=== PATIENT | female | born 1965 | race Caucasian/White ===

== ENCOUNTER 2017-08-08 10:05 | Inpatient (IN) | payer BC, OTHER ==
[~2017-08-08] VITALS: Ht 162.6 cm; Wt 87.0 kg
[2017-08-08] VITALS (11 sets, daily range): BP systolic 104–141; BP diastolic 59–93; PULSE 83–94; TEMP 36.5–37.3; O2SAT 96–100; Ht 162.6 cm; Wt 87.0 kg
[~2017-08-08 10:05] MED LIST: OMEP40CA41 PO
[2017-08-08] MEDS ORDERED: SODIUM CHLORIDE 0.9% 1000ML 1,000 ML IV STA (10:30)
[2017-08-08 11:12] LABS: PTT PATIENT 22.4 SECONDS (21.0-31.0)
[2017-08-08 11:18] LABS: HEMATOCRIT 23.8 % (37-47); HEMOGLOBIN 6.4 g/dL (12.0-16.0); MEAN CELL VOLUME 61.3 fL (80-100); MEAN CORPUSCULAR HEMOGLOBIN 16.5 pg (25-34); MEAN CORPUSCULAR HGB CONC 26.9 g/dl (32-36); MEAN PLATELET VOLUME 9.4 fL (7.4-10.4); PLATELET COUNT 576 K/uL (130-400); RED CELL DISTRIBUTION WIDTH CV 17.3 % (11.5-14.5); RED CELL DISTRIBUTION WIDTH SD 38.7 fL (36.4-46.3); WHITE BLOOD COUNT 6.06 K/uL (4.8-10.8)
[2017-08-08 11:24] LABS: ALT/SGPT 18 U/L (12-78); AST/SGOT 13 U/L (15-37); BLOOD UREA NITROGEN 22 mg/dl (7-18); CALCIUM 8.9 mg/dl (8.5-10.1); CARBON DIOXIDE 25 mmol/L (21-32); CREATININE 0.71 mg/dl (0.60-1.20); GLUCOSE 97 mg/dl (70-99); LIPASE 256 U/L (73-393); POTASSIUM 3.6 mmol/L (3.5-5.1); SODIUM 139 mmol/L (136-145)
[2017-08-08 11:27] LABS: ALKALINE PHOSPHATASE 113 U/L (45-117); TOTAL PROTEIN 7.4 gm/dl (6.4-8.2)
[2017-08-08 11:43] LABS: BASO % 0.5 %; BASO ABS # 0.03 K/uL (0-0.2); EOS % 2.1 %; EOS ABS # 0.13 K/uL (0-0.5); IG# 0.02 K/uL (0.00-0.02); LYMPH % 32.2 %; LYMPH ABS # 1.95 K/uL (1.2-3.4); MONO % 7.4 %; MONO ABS # 0.45 K/uL (0.11-0.59); NEUT % 57.5 %; NEUT ABS # 3.48 K/uL (1.4-6.5)
[2017-08-08] MEDS ORDERED: ONDANSETRON INJ 2 MG/ML 2 ML VIAL IV PRN ×2 (12:30→16:45)
[2017-08-08] MEDS ORDERED: MAGNESIUM HYDROXIDE SUSP 30 ML UDC PO PRN (12:30)
[2017-08-08] MEDS ORDERED: ZOLPIDEM TARTRATE 5 MG TAB PO PRN ×2 (12:30)
[2017-08-08] MEDS ORDERED: POLYETHYLENE (MIRALAX) 17 GM PACK PO PRN (12:30)
[2017-08-08] MEDS ORDERED: ALUMINUM/MAGNESIUM/SIMETH (MAALOX MAX) 30 ML UDC PO PRN (12:30)
[2017-08-08 13:09] LABS: RETIC COUNT % 1.5 % (0.5-2.0)
[2017-08-08] MEDS ORDERED: FAMOTIDINE IV INJ 20 MG in DEXTROSE 5% 100ML 100 ML IV STA (13:10)
[2017-08-08] MEDS ORDERED: PANTOprazole INJ 80 MG in DEXTROSE 5% 100ML IV ONE (13:30)
[2017-08-08] MEDS ORDERED: PANTOprazole INJ 40 MG in DEXTROSE 5% 100ML IV SCH (13:45)
--- NOTE | 2017-08-08 13:45 | History and Physical ---
History & Physical Date & Time of Service: Aug 08, 2017 at 13:39 Chief Complaint: Low Hemoglobin Primary Care Physician: Candida Cardenas D.O. History of Present Illness Source: patient, family, hospital records 52 years old female with no significant past medical history except severe arthritis. She was having severe hip pain and was using lots of nonsteroidal anti-inflammatory drugs. She said around May she was using 2-3 times a day ibuprofen. Currently she uses it only once a day or once every 2 days. She is being evaluated for a hip replacement surgery. Has been feeling very tired and fatigued lately and looks pale. Denies any blood in the stool or melena. She went for her presurgical evaluation. Obtain blood test that showed hemoglobin around 6. She was called by the physician and asked to come to the ED for further evaluation.. Denies any abdominal pain in the ED she was examined by ED physician, her occult blood in stool was positive. She denies smoking or alcohol abuse No significant past medical history Family history for breast cancer in her mom when she was in her 70s other than that no cardiac history. Past Medical/Surgical History Medical Problems: (1) GI bleed (2) No chronic diseases present (3) Right hip pain Family History FH: gallbladder disease Heart disease Hypertension Kidney disease Social History Smoking Status: Never Smoker Marital Status: Housing status: lives with family Occupational Status: employed Immunizations History of Influenza Vaccine: Unknown History of Tetanus Vaccine?: Unknown History of Pneumococcal: Unknown History of Hepatitis B Vaccine: Unknown Allergies Coded Allergies: Codeine (Verified Adverse Reaction, Unknown, N-V, 08/08/17) Home Medications Scheduled Omeprazole (Prilosec), 40 MG PO DAILY Review of Systems Review of system Constitutional: No fever / no chills / no sweats / no weakness /positive for fatigue Eyes: no blurring of vision / no eye pain / no discharge / no redness ENT: no hearing loss / no epistaxis /no swallowing problems Respiratory: no cough / no wheezing / no SOB / no hemoptysis Cardiovascular: no Chest pain / no lower extremity edema / no palpitation Abdomen: no pain / no nausea / no vomiting / no constipation Musculoskeletal: no joint pain / no muscle pain / no joint swelling Genitourinary: no dysuria / no incontinence / no urinary retention Neurologic: no focal weakness / no numbness/tingling / no ataxia Psychiatric: no depression symptoms / no anxiety / no insomnia Endocrine: no excessive thirst / no excessive urination Hematologic: no abnormal bleeding / no bruising / no LN swelling Skin: No rash / no pallor Physical Exam Vital Signs Date Time Temp Pulse Resp B/P (MAP) Pulse Ox O2 Delivery O2 Flow Rate FiO2 08/08/17 13:10 37.0 85 20 104/87 99 08/08/17 12:52 37.2 84 20 121/75 98 08/08/17 11:05 96 08/08/17 11:03 90 16 92/51 96 Room Air 08/08/17 10:18 36.9 105 18 134/79 95 Room Air Physical examination General patient appears to be comfortable, not in acute distress very pale, HEENT: Atraumatic , normocephalic /no jaundice /no pallor /anicteric /no dry mucous membrane /normal external ear inspection Neck: Supple /no swelling /central trach Heart: S1/S2 normal/regular rate and rhythm/no gallop /no rub /no murmur Lungs: Clear to auscultation bilaterally/normal chest with expansion/no rhonchi/ no rales/no wheezing/no use of accessory muscles of respiration Abdomen: Soft/nontender/no guarding/no rebound/no organomegaly/no pulsatile mass Musculoskeletal: No swelling/no edema/no tenderness/normal range of motion Neuro exam: Awake alert oriented 3/cranial nerves II through XII appear to be intact/sensation intact/moves all extremities/no abnormal movements Psychiatric evaluation: No depressed mood/normal affect Skin: No rash on exposed skin area/no erythema Extremity: Normal pulse/no pitting edema/no clubbing or cyanosis Endocrine/lymphatic: No obvious lymphadenopathy /no lymphedema Diagnostics Laboratory Results Results Past 24 Hours Test 08/08/17 10:52 08/08/17 12:53 Range/Units White Blood Count 6.06 4.8-10.8 K/uL Red Blood Count 3.88 4.2-5.4 M/uL Hemoglobin 6.4 12.0-16.0 g/dL Hematocrit 23.8 37-47 % Mean Corpuscular Volume 61.3 80-100 fL Mean Corpuscular Hemoglobin 16.5 25-34 pg Mean Corpuscular Hemoglobin Concent 26.9 32-36 g/dl Platelet Count 576 130-400 K/uL Mean Platelet Volume 9.4 7.4-10.4 fL Neutrophils (%) (Auto) 57.5 % Lymphocytes (%) (Auto) 32.2 % Monocytes (%) (Auto) 7.4 % Eosinophils (%) (Auto) 2.1 % Basophils (%) (Auto) 0.5 % Neutrophils # (Auto) 3.48 1.4-6.5 K/uL Lymphocytes # (Auto) 1.95 1.2-3.4 K/uL Monocytes # (Auto) 0.45 0.11-0.59 K/uL Eosinophils # (Auto) 0.13 0-0.5 K/uL Basophils # (Auto) 0.03 0-0.2 K/uL RDW Standard Deviation 38.7 36.4-46.3 fL RDW Coefficient of Variation 17.3 11.5-14.5 % Immature Granulocyte % (Auto) 0.3 % Immature Granulocyte # (Auto) 0.02 0.00-0.02 K/uL Hypochromasia PRESENT Poikilocytosis PRESENT Anisocytosis PRESENT Microcytosis PRESENT Absolute Reticulocyte Count 0.06 0.02-0.10 10^6/uL Percent Reticulocyte Count 1.5 0.5-2.0 % Prothrombin Time 10.2 9.0-12.0 SECONDS Prothromb Time International Ratio 1.0 0.9-1.1 Activated Partial Thromboplast Time 22.4 21.0-31.0 SECONDS Partial Thromboplastin Ratio 0.9 Sodium Level 139 136-145 mmol/L Potassium Level 3.6 3.5-5.1 mmol/L Chloride Level 107 98-107 mmol/L Carbon Dioxide Level 25 21-32 mmol/L Anion Gap 7.0 3-11 mmol/L Blood Urea Nitrogen 22 7-18 mg/dl Creatinine 0.71 0.60-1.20 mg/dl Est Creatinine Clear Calc Drug Dose 96.7 ml/min Estimated GFR () 111.9 Estimated GFR (Non- 96.6 BUN/Creatinine Ratio 30.9 10-20 Random Glucose 97 70-99 mg/dl Calcium Level 8.9 8.5-10.1 mg/dl Iron Level 8 35-150 mcg/dl Total Iron Binding Capacity 562 250-450 mcg/dl Transferrin 386 200-360 mg/dl Transferrin % Saturation 1 15-50 % Ferritin 1.7 8.0-388.0 ng/ml Total Bilirubin 0.2 0.2-1 mg/dl Direct Bilirubin < 0.1 0-0.2 mg/dl Aspartate Amino Transf (AST/SGOT) 13 15-37 U/L Alanine Aminotransferase (ALT/SGPT) 18 12-78 U/L Alkaline Phosphatase 113 45-117 U/L Total Protein 7.4 6.4-8.2 gm/dl Albumin 4.0 3.4-5.0 gm/dl Lipase 256 73-393 U/L Vitamin B12 Level 281 211-911 pg/mL Folate 18.43 >5.38 ng/mL Impression Assessment and Plan 52 years old female with no significant past medical history except severe arthritis. On chronic use of nonsteroidal anti-inflammatory drugs presented to the hospital with severe anemia. 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 until seen by GI Transfuse packed RBCs x 3 units Although likely her blood loss is secondary to nonsteroidal anti-inflammatory, will order full anemia study to rule out any concomitant chronic types of B12 or folate deficiency Check INR/platelet count SCD boot for DVT prophylaxis, avoid pharmacologic DVT prophylaxis at this point Resuscitation Status VTE Prophylaxis Will order VTE Prophylaxis: Yes
--- NOTE | 2017-08-08 15:16 | EMERGENCY ROOM VISIT NOTE ---
History Report prepared by Ayleen: Canelo Vázquez Under the Supervision of: Dr. Devan Valentin D.O. First contact with patient: 10:21 Chief Complaint: REFERRED BY DOCTOR Stated Complaint: LOW HEMOGLOBIN History of Present Illness The patient is a 52 year old female who presents to the Emergency Room with complaints of a persistent low hemoglobin level that was detected prior to arrival today. She states that she was seen by her primary care physician yesterday because she has hip surgery scheduled in 2 weeks in [place]. The patient had lab work done there, and was called by her doctor this morning because her hemoglobin was low. She notes that she has had some shortness of breath with exertion recently, as well as some mild chest pain with exertion. Per the patient's , the patient has been more pale in appearance than normal over the past few days. The patient notes no history of hemoglobin problems. She denies any nausea, vomiting or vomiting up blood, lightheadedness , abdominal pain, coughing up blood, melena, hematochezia, or vaginal bleeding or discharge. She adds that she was taking Ibuprofen twice a day until May, and since then has been taking Ibuprofen 2 or 3 times per week. The patient says that she has not been started on any new medications recently, and has no other medical conditions. She notes no recent steroid use. 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 Denies lightheadedness, vaginal bleeding or discharge. Review of Systems See HPI for pertinent positives & negatives. A total of 10 systems reviewed and were otherwise negative. Past Medical & Surgical Medical Problems: (1) GI bleed (2) No chronic diseases present Family History FH: gallbladder disease Heart disease Hypertension Kidney disease Social History Smoking Status: Never Smoker Marital Status: Housing Status: lives with family Occupation Status: employed Current/Historical Medications Scheduled Omeprazole (Prilosec), 40 MG PO DAILY Allergies Coded Allergies: Codeine (Verified Adverse Reaction, Unknown, N-V, 08/08/17) Physical Exam Vital Signs Date Time Temp Pulse Resp B/P (MAP) Pulse Ox O2 Delivery O2 Flow Rate FiO2 08/08/17 11:05 96 08/08/17 11:03 90 16 92/51 96 Room Air 08/08/17 10:18 36.9 105 18 134/79 95 Room Air Physical Exam GENERAL: Sitting up in bed, pale appearing, no acute distress, nontoxic. EYE EXAM: normal conjunctiva. OROPHARYNX: no exudate, no erythema, lips, buccal mucosa, and tongue normal and mucous membranes are moist NECK: supple, no nuchal rigidity, no adenopathy, non-tender LUNGS: Clear to auscultation. Normal chest wall mechanics HEART: no murmurs, S1 normal and S2 normal ABDOMEN: abdomen soft, non-tender, normo-active bowel sounds, no masses, no rebound or guarding. RECTAL: Heme positive stool. BACK: Back is symmetrical on inspection and there is no deformity, no midline tenderness, no CVA tenderness. SKIN: no rashes and no bruising UPPER EXTREMITIES: upper extremities are grossly normal. LOWER EXTREMITIES: No pitting edema. NEURO EXAM: Normal sensorium, cranial nerves II-XII grossly intact, normal speech, no gross weakness of arms, no gross weakness of legs. Medical Decision & Procedures Laboratory Results 08/08/17 10:52 Red Blood Count 3.88, Mean Corpuscular Volume 61.3, Mean Corpuscular Hemoglobin 16.5, Mean Corpuscular Hemoglobin Concent 26.9, Mean Platelet Volume 9.4, Neutrophils (%) (Auto) 57.5, Lymphocytes (%) (Auto) 32.2, Monocytes (%) (Auto) 7.4, Eosinophils (%) (Auto) 2.1, Basophils (%) (Auto) 0.5, Neutrophils # (Auto) 3.48, Lymphocytes # (Auto) 1.95, Monocytes # (Auto) 0.45, Eosinophils # (Auto) 0.13, Basophils # (Auto) 0.03 08/08/17 10:52 Test 08/08/17 10:52 White Blood Count 6.06 K/uL (4.8-10.8) Red Blood Count 3.88 M/uL (4.2-5.4) Hemoglobin 6.4 g/dL (12.0-16.0) Hematocrit 23.8 % (37-47) Mean Corpuscular Volume 61.3 fL (80-100) Mean Corpuscular Hemoglobin 16.5 pg (25-34) Mean Corpuscular Hemoglobin Concent 26.9 g/dl (32-36) Platelet Count 576 K/uL (130-400) Mean Platelet Volume 9.4 fL (7.4-10.4) Neutrophils (%) (Auto) 57.5 % Lymphocytes (%) (Auto) 32.2 % Monocytes (%) (Auto) 7.4 % Eosinophils (%) (Auto) 2.1 % Basophils (%) (Auto) 0.5 % Neutrophils # (Auto) 3.48 K/uL (1.4-6.5) Lymphocytes # (Auto) 1.95 K/uL (1.2-3.4) Monocytes # (Auto) 0.45 K/uL (0.11-0.59) Eosinophils # (Auto) 0.13 K/uL (0-0.5) Basophils # (Auto) 0.03 K/uL (0-0.2) RDW Standard Deviation 38.7 fL (36.4-46.3) RDW Coefficient of Variation 17.3 % (11.5-14.5) Immature Granulocyte % (Auto) 0.3 % Immature Granulocyte # (Auto) 0.02 K/uL (0.00-0.02) Hypochromasia PRESENT Poikilocytosis PRESENT Anisocytosis PRESENT Microcytosis PRESENT Absolute Reticulocyte Count 0.06 10^6/uL (0.02-0.10) Percent Reticulocyte Count 1.5 % (0.5-2.0) Prothrombin Time 10.2 SECONDS (9.0-12.0) Prothromb Time International Ratio 1.0 (0.9-1.1) Activated Partial Thromboplast Time 22.4 SECONDS (21.0-31.0) Partial Thromboplastin Ratio 0.9 Anion Gap 7.0 mmol/L (3-11) Est Creatinine Clear Calc Drug Dose 96.7 ml/min Estimated GFR () 111.9 Estimated GFR (Non- 96.6 BUN/Creatinine Ratio 30.9 (10-20) Calcium Level 8.9 mg/dl (8.5-10.1) Iron Level 8 mcg/dl (35-150) Total Iron Binding Capacity 562 mcg/dl (250-450) Transferrin 386 mg/dl (200-360) Transferrin % Saturation 1 % (15-50) Ferritin 1.7 ng/ml (8.0-388.0) Total Bilirubin 0.2 mg/dl (0.2-1) Direct Bilirubin < 0.1 mg/dl (0-0.2) Aspartate Amino Transf (AST/SGOT) 13 U/L (15-37) Alanine Aminotransferase (ALT/SGPT) 18 U/L (12-78) Alkaline Phosphatase 113 U/L (45-117) Total Protein 7.4 gm/dl (6.4-8.2) Albumin 4.0 gm/dl (3.4-5.0) Lipase 256 U/L (73-393) Laboratory results per my review. Medications Administered Medications (Trade) Dose Ordered Sig/Mayte Route Start Time Stop Time Status Last Admin Dose Admin Sodium Chloride 1,000 ml @ 999 mls/hr Q1H1M STAT IV 08/08/17 10:30 08/08/17 11:30 DC 08/08/17 11:00 999 MLS/HR ECG Per My Interpretation Indication: SOB/dyspnea Rate (beats per minute): 92 Rhythm: sinus rhythm Findings: no ectopy, other (normal axis) ED Course ED COURSE: Vital signs were reviewed and showed hypotensive vitals. The patients medical record was reviewed The above diagnostic studies were performed and reviewed. ED treatments and interventions as stated above. 1024: The patient was evaluated in room B9. A complete history and physical examination was performed. 1030: NSS 1000 ml @ 999 mls/hr IV. 1132: Upon reevaluation, the patient is resting.I discussed my findings with the patient and she understands and agrees with the treatment plan. Based on the patients age, coexisting illnesses, exam and lab findings the decision to treat as an inpatient was made. The patient remained stable while under my care. The patient will be evaluated for further management. 1134: I reviewed the patient's case with Dr. Quinn [place] [facility] [place]. He will evaluate the patient for further management. Medical Decision Differential diagnosis includes etiologies such as diverticulosis, AVM, coagulopathy, colitis, inflammatory bowel disease, malignancy, Radha-Fermin tear, esophagitis, peptic ulcer disease, variceal bleed, gastritis, epistaxis, fissure, hemorrhoids, as well as others were entertained. Patient is a 52-year-old female who presents to ER with exertional chest pain and shortness of breath associated with hemoglobin of 6 which was found on outpatient labs. IV and labs were obtained. CBC shows a hemoglobin of 6. BMP along with bilirubin, LFTs and lipase was unremarkable. She has no abdominal pain. She does take NSAIDs on a regular basis. Rectal was heme positive. Based on symptoms I do believe that this is consistent with a GI bleed and symptomatic anemia. Patient was given PRBCs while in the ER. She is admitted to internal medicine for further workup. Her blood pressure did drop into the 70s throughout her stay in the ER. She was given a bolus normal saline. This did recover to the low 100s. I do favor this was likely vasovagal but cannot be certain. She was also given PRBCs as discussed above. Medication Reconcilliation Current Medication List: was personally reviewed by me Blood Pressure Screening Patient's blood pressure: Low blood pressure Referred to hospitalist. Consults Time Called: 1130 Consulting Physician: Dr. Kai STOUT hospitalist Returned Call: [phone] I reviewed the patient's case with Dr. Kai STOUT hospitalist. He will evaluate the patient for further management. Impression Primary Impression: GI bleed Additional Impression: Symptomatic anemia Critical Care I have personally spent 35 minutes of critical care time in the direct management of this patient. This includes bedside care, interpretation of diagnostic studies, and testing, discussion with consultants, patient, and family members, and other required patient management activities. This 35 minutes is in excess of all separately billable procedures. Scribe Attestation The scribe's documentation has been prepared under my direction and personally reviewed by me in its entirety. I confirm that the note above accurately reflects all work, treatment, procedures, and medical decision making performed by me. Departure Information Dispostion Being Evaluated By Hospitalist Referrals Candida Cardenas D.ONoemi (PCP) Patient Instructions My [facility] [address] Problem Qualifiers Primary Impression: GI bleed GI bleed type/associated pathology: unspecified gastrointestinal hemorrhage type Qualified Codes: K92.2 - Gastrointestinal hemorrhage, unspecified
--- NOTE | 2017-08-08 15:48 | Gastrointestinal Consultation ---
Gastrointestinal Consultation Date of Consultation: Aug 08, 2017 Attending Physician: DR Aly Grace Consulting Physician: DR Amado Goins Reason for Consultation: Anemia, GI bleed History of Present Illness Patient is a 52 year old female with CC of fatigue. HPI Pt with hip pain taking NSAIDS 2-3 times a day since 05/2017. Hip surgery planned in [place] in 2 weeks. Pt had preop bw done and Hgb 6 so sent to ER. In ER Hgb 6.4 and heme pos stool but patient denies black or red stools. No abd pain. EGD distant for GERD unknown results. NO colo in past per patient report. No n/v. Fe sat and ferritin low. B12 and folate normal. Pt having fatigue and some shortness of breath. Past Medical/Surgical History Medical Problems: (1) Symptomatic anemia Status: Acute Family History FH: gallbladder disease Heart disease Hypertension Kidney disease Social History Smoking Status: Never Smoker Marital Status: Housing Status: lives with family Occupation Status: employed Allergies Coded Allergies: Codeine (Verified Adverse Reaction, Unknown, N-V, 08/08/17) Current Medications Home Meds and Scripts Medications Dose Route/Sig Max Daily Dose Days Date Category Prilosec (Omeprazole) 40 Mg Cap 40 Mg PO DAILY 02/28/15 Reported Review of Systems See HPI otherwise 10 ROS neg Physical Exam Date Time Temp Pulse Resp B/P (MAP) Pulse Ox O2 Delivery O2 Flow Rate FiO2 08/08/17 15:32 88 20 126/88 100 08/08/17 15:19 36.5 85 16 134/87 100 08/08/17 14:55 37.2 92 18 134/87 99 2.0 08/08/17 14:26 37.1 86 18 121/77 99 08/08/17 14:26 37.1 86 16 121/77 99 Room Air 08/08/17 14:12 89 20 119/75 97 Room Air 08/08/17 13:40 37.1 94 20 110/70 99 08/08/17 13:10 37.0 85 20 104/87 99 08/08/17 12:52 37.2 84 20 121/75 98 08/08/17 11:05 96 08/08/17 11:03 90 16 92/51 96 Room Air 08/08/17 10:18 36.9 105 18 134/79 95 Room Air General Appearance: WD/WN, no apparent distress Eyes: normal inspection, PERRL ENT: hearing grossly normal, pharynx normal Neck: supple, trachea midline Respiratory/Chest: lungs clear, no respiratory distress Cardiovascular: regular rate, rhythm, no edema, no murmur Abdomen: normal bowel sounds, non tender, soft, no organomegaly, no pulsatile mass Extremities: non-tender, normal inspection Neurologic/Psych: behavioral health counselor II-XII nml as tested, no motor/sensory deficits, alert, normal mood/affect, oriented x 3 Skin: normal color, no jaundice Laboratory Results Last 24 Hours Test 08/08/17 10:52 08/08/17 12:53 08/08/17 15:20 White Blood Count 6.06 K/uL Red Blood Count 3.88 M/uL Hemoglobin 6.4 g/dL Hematocrit 23.8 % Mean Corpuscular Volume 61.3 fL Mean Corpuscular Hemoglobin 16.5 pg Mean Corpuscular Hemoglobin Concent 26.9 g/dl Platelet Count 576 K/uL Mean Platelet Volume 9.4 fL Neutrophils (%) (Auto) 57.5 % Lymphocytes (%) (Auto) 32.2 % Monocytes (%) (Auto) 7.4 % Eosinophils (%) (Auto) 2.1 % Basophils (%) (Auto) 0.5 % Neutrophils # (Auto) 3.48 K/uL Lymphocytes # (Auto) 1.95 K/uL Monocytes # (Auto) 0.45 K/uL Eosinophils # (Auto) 0.13 K/uL Basophils # (Auto) 0.03 K/uL RDW Standard Deviation 38.7 fL RDW Coefficient of Variation 17.3 % Immature Granulocyte % (Auto) 0.3 % Immature Granulocyte # (Auto) 0.02 K/uL Hypochromasia PRESENT Poikilocytosis PRESENT Anisocytosis PRESENT Microcytosis PRESENT Absolute Reticulocyte Count 0.06 10^6/uL Percent Reticulocyte Count 1.5 % Prothrombin Time 10.2 SECONDS Prothromb Time International Ratio 1.0 Activated Partial Thromboplast Time 22.4 SECONDS Partial Thromboplastin Ratio 0.9 Sodium Level 139 mmol/L Potassium Level 3.6 mmol/L Chloride Level 107 mmol/L Carbon Dioxide Level 25 mmol/L Anion Gap 7.0 mmol/L Blood Urea Nitrogen 22 mg/dl Creatinine 0.71 mg/dl Est Creatinine Clear Calc Drug Dose 96.7 ml/min Estimated GFR () 111.9 Estimated GFR (Non- 96.6 BUN/Creatinine Ratio 30.9 Random Glucose 97 mg/dl Calcium Level 8.9 mg/dl Iron Level 8 mcg/dl Total Iron Binding Capacity 562 mcg/dl Transferrin 386 mg/dl Transferrin % Saturation 1 % Ferritin 1.7 ng/ml Total Bilirubin 0.2 mg/dl Direct Bilirubin < 0.1 mg/dl Aspartate Amino Transf (AST/SGOT) 13 U/L Alanine Aminotransferase (ALT/SGPT) 18 U/L Alkaline Phosphatase 113 U/L Total Protein 7.4 gm/dl Albumin 4.0 gm/dl Lipase 256 U/L Vitamin B12 Level 281 pg/mL Folate 18.43 ng/mL Impression Heme pos stool Fe def anemia GERD Suspect anemia from chronic GI blood loss. Recommend EGD to start to look for PUD as etiology secondary to NSAIDS. Plan for today since NPO since breakfast. Procedure and risks explained to patient which include but not limited to med reaction, bleeding, perforation, aspiration and missed lesions.
[2017-08-08] MEDS ORDERED: FENTANYL CITRATE INJ 50 MCG/1 ML 2 ML VIAL ONE (16:28)
[2017-08-08] MEDS ORDERED: FENTANYL CITRATE INJ 50 MCG/1 ML 2 ML VIAL IV PRN (16:45)
[2017-08-08] MEDS ORDERED: ATROPINE SULFATE 0.1 MG/ML 5ML SYR IV PRN (16:45)
--- NOTE | 2017-08-08 17:02 | [facility] Post Operative Brief Note ---
Immediate Operative Summary Operative Date Aug 08, 2017. Pre-Operative Diagnosis heme positive, anemia Post-Operative Diagnosis esophageal ulcer friable, large HH, antral erosive gastritis Procedure(s) Performed EGD with bx Surgeon Amado Goins Automation Technician Surgeon(s) n/a Estimated Blood Loss minimal Findings Consistent with Post-Op Diagnosis Specimens antral bx Anesthesia Type MAC Complication(s) none Disposition Accompanied Pt To Recover: no Disposition: Recovery Room / PACU
[2017-08-08] MEDS ORDERED: PROPOFOL IV EMULSION 10 MG/ML 20 ML VIAL IV ONE (17:03)
[2017-08-08] MEDS ORDERED: LIDOCAINE HCL 2% 2 ML VIAL (20MG/ML) ONE (17:03)
--- NOTE | 2017-08-08 17:15 | GI REPORT ---
Procedure Date: 08/08/2017 4:12 PM Procedure: Upper GI endoscopy Indications: Iron deficiency anemia secondary to chronic blood loss, Heme positive stool Medicines: Monitored Anesthesia Care Complications: No immediate complications. Estimated blood loss: Minimal. Estimated Blood Loss: Estimated blood loss was minimal. Procedure: Pre-Anesthesia Assessment: - The risks and benefits of the procedure and the sedation options and risks were discussed with the patient. All questions were answered and informed consent was obtained. - Patient identification and proposed procedure were verified prior to the procedure by the physician, the nurse, the anesthesiologist and the sales person. The procedure was verified in the procedure room. After obtaining informed consent, the endoscope was passed under direct vision. Throughout the procedure, the patient's blood pressure, pulse, and oxygen saturations were monitored continuously. The Scope was introduced through the mouth, and advanced to the second part of duodenum. The upper GI endoscopy was accomplished without difficulty. The patient tolerated the procedure well. Procedure and risks explained to patient which include but not limited to medication reaction, bleeding, perforation, aspiration , and missed lesions. Judicious gas insufflation was used and gas removal done on the way out. The lumen was always visualized when advancing the scope. Prep was good. Washes and suctioning used as needed to get good visualization of the mucosa. Retroflexion to look at the fundus and cardia of the stomach and GE junction was done. Findings: The Z-line was found 30 cm from the incisors. One cratered esophageal ulcer with self limited oozing blood was found 29 to 30 cm from the incisors. The lesion was 10 mm in largest dimension. A 12 cm hiatal hernia with a few Denys ersosions was found. Multiple dispersed, small non-bleeding erosions were found in the gastric antrum. There were no stigmata of recent bleeding. Biopsies were taken with a cold forceps for histology and Helicobacter pylori testing. Estimated blood loss was minimal. The examined duodenum was normal. The exam was otherwise without abnormality. Impression: - Z-line, 30 cm from the incisors. - Oozing esophageal ulcer. - 12 cm hiatal hernia with a few Denys ulcers. - Non-bleeding erosive gastropathy. Biopsied. - Normal examined duodenum. - The examination was otherwise normal. Recommendation: - [facility]. - Avoid NSAIDS. Protonix 40 mg po bid. Esophageal ulceration could cause slow chronic GI blood loss but recommend outpt colonoscopy to make sure lesions in colon prior to hip surgery. Solid diet. - No biopsy done to esophagus ulcer given the oozing so recommend repeat EGD in 6-8 weeks to document healing. Amado Goins M.D. Amado Goins MD 08/08/2017 5:14:43 PM This report has been signed electronically. Note Initiated On: 08/08/2017 4:12 PM I attest to the content of the Intraoperative Record and orders documented therein, exceptions below
--- NOTE | 2017-08-08 17:16 | Anesthesiology Progress Note ---
Anesthesia Post Op Note Date & Time Aug 08, 2017 at 17:16 Vital Signs Pain Intensity: 0 Vital Signs Past 12 Hours Date Time Temp Pulse Resp B/P (MAP) Pulse Ox O2 Delivery O2 Flow Rate FiO2 08/08/17 17:06 36.9 84 16 113/77 96 Room Air 08/08/17 16:15 37.1 89 18 138/83 97 08/08/17 15:51 37.2 86 16 141/93 (109) 100 Nasal Cannula 2.0 08/08/17 15:51 37.2 83 16 141/93 100 08/08/17 15:32 88 20 126/88 100 08/08/17 15:19 36.5 85 16 134/87 100 08/08/17 14:55 37.2 92 18 134/87 99 2.0 08/08/17 14:26 37.1 86 18 121/77 99 08/08/17 14:26 37.1 86 16 121/77 99 Room Air 08/08/17 14:12 89 20 119/75 97 Room Air 08/08/17 13:40 37.1 94 20 110/70 99 08/08/17 13:10 37.0 85 20 104/87 99 08/08/17 12:52 37.2 84 20 121/75 98 08/08/17 11:05 96 08/08/17 11:03 90 16 92/51 96 Room Air 08/08/17 10:18 36.9 105 18 134/79 95 Room Air Notes Mental Status: alert / awake / arousable, participated in evaluation Pt Amnestic to Procedure: Yes Nausea / Vomiting: adequately controlled Pain: adequately controlled Airway Patency, RR, SpO2: stable & adequate BP & HR: stable & adequate Hydration State: stable & adequate Anesthetic Complications: no major complications apparent
--- NOTE | 2017-08-08 17:29 | Progress Note ---
Progress Note Date of Service Aug 08, 2017. Progress Note Pt stable post EGD no complaints. Went over resuls of EGD. The ulcer needs healed and colonoscopy done before elective hip surgery with perioperative anticoagulation. So recommend EGD in 6-8 weeks with colonoscopy at same time. If Hgb stable she could be DCed tomorrow with outpt scopes.
[2017-08-08] MEDS: SODIUM CHLORIDE 0.9% 1000ML 1,000 ML IV SCH (17:43)
[2017-08-08] MEDS: ACETAMINOPHEN 325 MG TAB PO PRN (17:56)
[2017-08-08 18:57] LABS: HEMATOCRIT 28.5 % (37-47); HEMOGLOBIN 8.8 g/dL (12.0-16.0)
[2017-08-08] MEDS: PANTOprazole SOD 40 MG TAB PO SCH (20:22)
[2017-08-09 00:02] LABS: HEMATOCRIT 27.4 % (37-47); HEMOGLOBIN 8.2 g/dL (12.0-16.0)
[2017-08-09 00:24] VITALS: BP 118/73; PULSE 76; TEMP 37; O2SAT 94
[2017-08-09] MEDS: ACETAMINOPHEN 325 MG TAB PO PRN ×2 (03:27→07:57)
[2017-08-09 03:35] VITALS: BP 125/78; PULSE 78; TEMP 36.5; O2SAT 95
[2017-08-09 07:41] LABS: BASO % 0.4 %; BASO ABS # 0.03 K/uL (0-0.2); EOS % 2.4 %; EOS ABS # 0.16 K/uL (0-0.5); HEMATOCRIT 28.8 % (37-47); HEMOGLOBIN 8.9 g/dL (12.0-16.0); IG# 0.01 K/uL (0.00-0.02); LYMPH ABS # 1.68 K/uL (1.2-3.4); MEAN CELL VOLUME 66.7 fL (80-100); MEAN CORPUSCULAR HEMOGLOBIN 20.6 pg (25-34); MEAN CORPUSCULAR HGB CONC 30.9 g/dl (32-36); MEAN PLATELET VOLUME 9.4 fL (7.4-10.4); MONO % 9.5 %; MONO ABS # 0.64 K/uL (0.11-0.59); NEUT % 62.6 %; PLATELET COUNT 419 K/uL (130-400); RED CELL DISTRIBUTION WIDTH CV 21.7 % (11.5-14.5); RED CELL DISTRIBUTION WIDTH SD 52.1 fL (36.4-46.3); WHITE BLOOD COUNT 6.72 K/uL (4.8-10.8)
[2017-08-09] MEDS: PANTOprazole SOD 40 MG TAB PO SCH (07:55)
--- NOTE | 2017-08-09 07:56 | Progress Note ---
Subjective Date of Service: Aug 09, 2017. Problem List Medical Problems: (1) Symptomatic anemia Status: Acute Objective Vital Signs Date Time Temp Pulse Resp B/P (MAP) Pulse Ox O2 Delivery O2 Flow Rate FiO2 08/09/17 04:00 Room Air 08/09/17 03:35 36.5 78 16 125/78 (94) 95 Room Air 08/09/17 00:24 37.0 76 18 118/73 (88) 94 Room Air 08/08/17 23:59 Room Air 08/08/17 20:00 Room Air 08/08/17 19:34 37.3 84 16 108/59 (75) 96 Room Air 08/08/17 17:45 Room Air 08/08/17 17:40 16 122/79 (93) 97 Room Air 08/08/17 17:16 36.6 85 16 133/86 98 Room Air 08/08/17 17:06 36.9 84 16 113/77 96 Room Air 08/08/17 16:15 37.1 89 18 138/83 97 08/08/17 15:51 37.2 86 16 141/93 (109) 100 Nasal Cannula 2.0 08/08/17 15:51 37.2 83 16 141/93 100 08/08/17 15:32 88 20 126/88 100 08/08/17 15:19 36.5 85 16 134/87 100 08/08/17 14:55 37.2 92 18 134/87 99 2.0 08/08/17 14:26 37.1 86 18 121/77 99 08/08/17 14:26 37.1 86 16 121/77 99 Room Air 08/08/17 14:12 89 20 119/75 97 Room Air 08/08/17 13:40 37.1 94 20 110/70 99 08/08/17 13:10 37.0 85 20 104/87 99 08/08/17 12:52 37.2 84 20 121/75 98 08/08/17 11:05 96 08/08/17 11:03 90 16 92/51 96 Room Air 08/08/17 10:18 36.9 105 18 134/79 95 Room Air Laboratory Results Last 24 Hours Test 08/08/17 10:52 08/08/17 12:53 08/08/17 17:59 08/08/17 18:12 White Blood Count 6.06 K/uL Red Blood Count 3.88 M/uL Hemoglobin 6.4 g/dL 8.8 g/dL Hematocrit 23.8 % 28.5 % Mean Corpuscular Volume 61.3 fL Mean Corpuscular Hemoglobin 16.5 pg Mean Corpuscular Hemoglobin Concent 26.9 g/dl Platelet Count 576 K/uL Mean Platelet Volume 9.4 fL Neutrophils (%) (Auto) 57.5 % Lymphocytes (%) (Auto) 32.2 % Monocytes (%) (Auto) 7.4 % Eosinophils (%) (Auto) 2.1 % Basophils (%) (Auto) 0.5 % Neutrophils # (Auto) 3.48 K/uL Lymphocytes # (Auto) 1.95 K/uL Monocytes # (Auto) 0.45 K/uL Eosinophils # (Auto) 0.13 K/uL Basophils # (Auto) 0.03 K/uL RDW Standard Deviation 38.7 fL RDW Coefficient of Variation 17.3 % Immature Granulocyte % (Auto) 0.3 % Immature Granulocyte # (Auto) 0.02 K/uL Hypochromasia PRESENT Poikilocytosis PRESENT Anisocytosis PRESENT Microcytosis PRESENT Absolute Reticulocyte Count 0.06 10^6/uL Percent Reticulocyte Count 1.5 % Prothrombin Time 10.2 SECONDS Prothromb Time International Ratio 1.0 Activated Partial Thromboplast Time 22.4 SECONDS Partial Thromboplastin Ratio 0.9 Sodium Level 139 mmol/L Potassium Level 3.6 mmol/L Chloride Level 107 mmol/L Carbon Dioxide Level 25 mmol/L Anion Gap 7.0 mmol/L Blood Urea Nitrogen 22 mg/dl Creatinine 0.71 mg/dl Est Creatinine Clear Calc Drug Dose 96.7 ml/min Estimated GFR () 111.9 Estimated GFR (Non- 96.6 BUN/Creatinine Ratio 30.9 Random Glucose 97 mg/dl Calcium Level 8.9 mg/dl Iron Level 8 mcg/dl Total Iron Binding Capacity 562 mcg/dl Transferrin 386 mg/dl Transferrin % Saturation 1 % Ferritin 1.7 ng/ml Total Bilirubin 0.2 mg/dl Direct Bilirubin < 0.1 mg/dl Aspartate Amino Transf (AST/SGOT) 13 U/L Alanine Aminotransferase (ALT/SGPT) 18 U/L Alkaline Phosphatase 113 U/L Total Protein 7.4 gm/dl Albumin 4.0 gm/dl Lipase 256 U/L Vitamin B12 Level 281 pg/mL Folate 18.43 ng/mL Urine Color YELLOW Urine Appearance CLEAR Urine pH 7.0 Urine Specific [place] 1.008 Urine Protein NEG Urine Glucose (UA) NEG Urine Ketones TRACE Urine Occult Blood NEG Urine Nitrite NEG Urine Bilirubin NEG Urine Urobilinogen NEG Urine Leukocyte Esterase NEG Test 08/08/17 23:23 08/09/17 07:34 Hemoglobin 8.2 g/dL 8.9 g/dL Hematocrit 27.4 % 28.8 % White Blood Count 6.72 K/uL Red Blood Count 4.32 M/uL Mean Corpuscular Volume 66.7 fL Mean Corpuscular Hemoglobin 20.6 pg Mean Corpuscular Hemoglobin Concent 30.9 g/dl Platelet Count 419 K/uL Mean Platelet Volume 9.4 fL Neutrophils (%) (Auto) 62.6 % Lymphocytes (%) (Auto) 25.0 % Monocytes (%) (Auto) 9.5 % Eosinophils (%) (Auto) 2.4 % Basophils (%) (Auto) 0.4 % Neutrophils # (Auto) 4.20 K/uL Lymphocytes # (Auto) 1.68 K/uL Monocytes # (Auto) 0.64 K/uL Eosinophils # (Auto) 0.16 K/uL Basophils # (Auto) 0.03 K/uL RDW Standard Deviation 52.1 fL RDW Coefficient of Variation 21.7 % Immature Granulocyte % (Auto) 0.1 % Immature Granulocyte # (Auto) 0.01 K/uL Assessment and Plan 52 years old female presents with acute blood loss anemia, upper gi bleed from esophageal ulcer and erosive gastropathy, and has confirmed iron deficiency anemia, has severe right hip osteo arthritis and is using nonsteroidal anti- inflammatory drugs to control pain Chronic blood loss anemia, was transfused 2 u prbc Iron deficiency anemia, will get some iron associated with blood transfusions, will offer oral iron at discharged Esophageal ulcer and erosive gastritis, on protonix bid, GI consult will consider outpt colonoscopy given severity of iron deficiency Severe arthritis, control pain with alternative agents SCD DVT prophylaxis, avoid pharmacologic DVT prophylaxis at this point
[2017-08-09 07:57] VITALS: BP 114/79; PULSE 85; TEMP 36.4; O2SAT 93
[2017-08-09 08:32] LABS: ALBUMIN 3.4 gm/dl (3.4-5.0); CALCIUM 8.5 mg/dl (8.5-10.1); CREATININE 0.82 mg/dl (0.60-1.20); POTASSIUM 3.7 mmol/L (3.5-5.1)
[2017-08-09 08:35] LABS: TOTAL PROTEIN 6.6 gm/dl (6.4-8.2)
[2017-08-09 11:35] VITALS: BP 125/73; PULSE 79; TEMP 36.5; O2SAT 96
--- NOTE | 2017-08-09 11:57 | Gastroenterology Progress Note ---
Progress Note Date of Service: Aug 09, 2017 Subjective Pt evaluation today including: conversation w/ patient, conversation w/ family (), physical exam, chart review, lab review, review of studies, review of inpatient medication list CC f/u anemia, heme pos stool HPI Pt denies abd pain. Stool this am normal colored. Tolerating solid diet. Review of Systems Respiratory: No shortness of breath Cardiac: No chest pain Medications Current Inpatient Medications Medications (Trade) Dose Ordered Sig/Mayte Route Start Time Stop Time Status Last Admin Dose Admin Sodium Chloride 1,000 ml @ 50 mls/hr Q20H IV 08/08/17 12:20 09/07/17 12:19 08/08/17 17:43 50 MLS/HR Acetaminophen (Tylenol Tab) 650 mg Q4H PRN PO 08/08/17 12:30 09/07/17 12:29 08/09/17 07:57 650 MG Al Hydrox/Mg Hydrox/Simethicone (Maalox Max Susp) 15 ml Q4H PRN PO 08/08/17 12:30 09/07/17 12:29 Magnesium Hydroxide (Milk Of Magnesia Susp) 30 ml Q12H PRN PO 08/08/17 12:30 09/07/17 12:29 Zolpidem Tartrate (Ambien Tab) 5 mg HSZ PRN PO 08/08/17 12:30 09/07/17 12:29 Ondansetron HCl (Zofran Inj) 4 mg Q6H PRN IV 08/08/17 12:30 09/07/17 12:29 08/08/17 18:16 4 MG Polyethylene (Miralax Powder Packet) 17 gm DAILY PRN PO 08/08/17 12:30 09/07/17 12:29 Pantoprazole Sodium (Protonix Tab) 40 mg BID PO 08/08/17 21:00 09/07/17 20:59 08/09/17 07:55 40 MG Objective Vital Signs Date Time Temp Pulse Resp B/P (MAP) Pulse Ox O2 Delivery O2 Flow Rate FiO2 08/09/17 08:00 Room Air 08/09/17 07:57 36.4 85 18 114/79 (91) 93 Room Air 08/09/17 04:00 Room Air 08/09/17 03:35 36.5 78 16 125/78 (94) 95 Room Air 08/09/17 00:24 37.0 76 18 118/73 (88) 94 Room Air 08/08/17 23:59 Room Air 08/08/17 20:00 Room Air 08/08/17 19:34 37.3 84 16 108/59 (75) 96 Room Air 08/08/17 17:45 Room Air 08/08/17 17:40 16 122/79 (93) 97 Room Air 08/08/17 17:16 36.6 85 16 133/86 98 Room Air 08/08/17 17:06 36.9 84 16 113/77 96 Room Air 08/08/17 16:15 37.1 89 18 138/83 97 08/08/17 15:51 37.2 86 16 141/93 (109) 100 Nasal Cannula 2.0 08/08/17 15:51 37.2 83 16 141/93 100 08/08/17 15:32 88 20 126/88 100 08/08/17 15:19 36.5 85 16 134/87 100 08/08/17 14:55 37.2 92 18 134/87 99 2.0 08/08/17 14:26 37.1 86 18 121/77 99 08/08/17 14:26 37.1 86 16 121/77 99 Room Air 08/08/17 14:12 89 20 119/75 97 Room Air 08/08/17 13:40 37.1 94 20 110/70 99 08/08/17 13:10 37.0 85 20 104/87 99 08/08/17 12:52 37.2 84 20 121/75 98 Physical Exam General Appearance: WD/WN, no apparent distress Respiratory/Chest: lungs clear, no respiratory distress Cardiovascular: regular rate, rhythm, no edema Abdomen: normal bowel sounds, non tender, soft, no organomegaly, no pulsatile mass Laboratory Results Last 24 Hours Test 08/08/17 12:53 08/08/17 17:59 08/08/17 18:12 08/08/17 23:23 Vitamin B12 Level 281 pg/mL Folate 18.43 ng/mL Urine Color YELLOW Urine Appearance CLEAR Urine pH 7.0 Urine Specific [place] 1.008 Urine Protein NEG Urine Glucose (UA) NEG Urine Ketones TRACE Urine Occult Blood NEG Urine Nitrite NEG Urine Bilirubin NEG Urine Urobilinogen NEG Urine Leukocyte Esterase NEG Hemoglobin 8.8 g/dL 8.2 g/dL Hematocrit 28.5 % 27.4 % Test 08/09/17 07:34 White Blood Count 6.72 K/uL Red Blood Count 4.32 M/uL Hemoglobin 8.9 g/dL Hematocrit 28.8 % Mean Corpuscular Volume 66.7 fL Mean Corpuscular Hemoglobin 20.6 pg Mean Corpuscular Hemoglobin Concent 30.9 g/dl Platelet Count 419 K/uL Mean Platelet Volume 9.4 fL Neutrophils (%) (Auto) 62.6 % Lymphocytes (%) (Auto) 25.0 % Monocytes (%) (Auto) 9.5 % Eosinophils (%) (Auto) 2.4 % Basophils (%) (Auto) 0.4 % Neutrophils # (Auto) 4.20 K/uL Lymphocytes # (Auto) 1.68 K/uL Monocytes # (Auto) 0.64 K/uL Eosinophils # (Auto) 0.16 K/uL Basophils # (Auto) 0.03 K/uL RDW Standard Deviation 52.1 fL RDW Coefficient of Variation 21.7 % Immature Granulocyte % (Auto) 0.1 % Immature Granulocyte # (Auto) 0.01 K/uL Hypochromasia PRESENT Poikilocytosis PRESENT Anisocytosis PRESENT Microcytosis PRESENT Sodium Level 142 mmol/L Potassium Level 3.7 mmol/L Chloride Level 110 mmol/L Carbon Dioxide Level 27 mmol/L Anion Gap 5.0 mmol/L Blood Urea Nitrogen 17 mg/dl Creatinine 0.82 mg/dl Est Creatinine Clear Calc Drug Dose 83.7 ml/min Estimated GFR () 94.0 Estimated GFR (Non- 81.1 BUN/Creatinine Ratio 20.7 Random Glucose 88 mg/dl Calcium Level 8.5 mg/dl Magnesium Level 2.3 mg/dl Total Bilirubin 0.3 mg/dl Aspartate Amino Transf (AST/SGOT) 15 U/L Alanine Aminotransferase (ALT/SGPT) 18 U/L Alkaline Phosphatase 105 U/L Total Protein 6.6 gm/dl Albumin 3.4 gm/dl Globulin 3.2 gm/dl Albumin/Globulin Ratio 1.0 Assessment and Plan Esophageal ulcer with oozing erosive gastritis Large HH--told patient is she gets severe abd pain and goes to ER to tell people about HH because incarceration/volvulus of stomach can happen and is surigal emergency heme pos stool anemia--improved post transfusion and stable Recommended to patient/ she cancel hip surgery for now, Protonix 40 mg po bid, oral iron daily, avoid NSAIDS and ASA (can use tylenol), avoid ETOH. Also told them recommend repeat EGD in 6 weeks to document healing of ulcer as well as colo to make sure no colonic lesions to explain anemia and heme pos. Colonoscopy do in 6 weeks at time of EGD. Discussed with DR Panchito salinas for DC today. He asked about IV Fe give such low Fe and that is reasonable to give dose prior to DC. Will sign off.
[2017-08-09] MEDS ORDERED: FERR324T15 PO (12:18)
[2017-08-09] MEDS ORDERED: PRT40 PO (12:18)
--- NOTE | 2017-08-09 12:20 | Discharge Instructions ---
Discharge Instructions Date of Service Aug 09, 2017. Admission Reason for Admission: Gi Bleed Discharge Discharge Diagnosis / Problem: esophageal ulc er Discharge Goals Goal(s): Diagnostic testing, Therapeutic intervention Activity Recommendations Activity Limitations: as noted below Lifting Limitations: gradually increase as tolerated If prescription iron causes too much consitipation you can use pre vitamins over the counter . Current Hospital Diet Patient's current hospital diet: Regular Diet Discharge Diet Recommended Diet: Regular Diet Procedures Procedures Performed: EGD with bx Pending Studies Studies pending at discharge: no Medical Emergencies . Who to Call and When: Medical Emergencies: If at any time you feel your situation is an emergency, please call 911 immediately. . Non-Emergent Contact Non-Emergency issues call your: Primary Care Provider, [facility] Call Non-Emergent contact if: temperature is above 101, your pain is unusual for you . . "Provider Documentation" section prepared by Joe Flanagan. .
[2017-08-09] MEDS ORDERED: RXC5 PO (12:21)
[2017-08-09] MEDS ORDERED: IRON SUCROSE INJ 100 MG in SODIUM CHLORIDE 0.9% 100ML 100 ML IV ONE (12:30)
[2017-08-09] MEDS: SODIUM CHLORIDE 0.9% 1000ML 1,000 ML IV SCH (13:00)
[2017-08-09 13:02] VITALS: BP 125/73; PULSE 79; TEMP 36.5; O2SAT 96
--- NOTE | 2017-08-09 15:16 | Discharge Summary ---
Discharge Summary Date of Service Aug 09, 2017. Discharge Summary Admission Date: Aug 08, 2017 at 12:30 Discharge Date: Aug 09, 2017 Discharge Disposition: Home Principal Diagnosis: esophageal ulcer and erosive gastritic, acute blood loss anemia Problems/Secondary Diagnoses: iron deficiency anemia Immunizations: Have You Had Influenza Vaccine: Unknown History of Tetanus Vaccine?: Unknown History of Pneumococcal: Unknown History of Hepatitis B Vaccine: Unknown Procedures: EGD emergently Consultations: Dr Goins Medication Reconciliation New Medications: Ferrous Fumarate (Ferrous Fumarate 324) 324 Mg Tab 1 TAB PO BID, #60 TAB 3 Refills Oxycodone HCl (Oxycodone HCl) 5 Mg Tab 5-10 MG PO Q8 PRN for Pain, #30 TAB Pantoprazole (Pantoprazole Sodium) 40 Mg Tab 40 MG PO BID, #60 TAB 2 Refills Discontinued Medications: Omeprazole (Prilosec) 40 Mg Cap 40 MG PO DAILY, #90 Discharge Exam Review of Systems: Constitutional: No fever, No chills Respiratory: No cough, No shortness of breath, No dyspnea on exertion Cardiovascular: No chest pain, No orthopnea, No edema Abdomen: No nausea, No diarrhea Musculoskeletal: No joint pain, No swelling Neurologic: No memory loss, No paralysis, No weakness Psychiatric: No depression symptoms, No anxiety Physical Exam: General Appearance: WD/WN, no apparent distress Neck: supple, no carotid bruits Respiratory/Chest: chest non-tender, lungs clear, normal breath sounds Cardiovascular: regular rate, rhythm, no murmur Abdomen / GI: normal bowel sounds, non tender, soft Neurologic/Psychiatric: alert, oriented x 3 Hospital Course 52 years old female presents with acute blood loss anemia, upper gi bleed from esophageal ulcer and erosive gastropathy, and has confirmed iron deficiency anemia, has severe right hip osteo arthritis and is using nonsteroidal anti- inflammatory drugs to control pain Chronic blood loss anemia, was transfused 2 u prbc, noted severe iron deficiency , will give one dose of venofer before discharge and then was recommended to take oral iron Iron deficiency anemia, will get some iron associated with blood transfusions, will offer oral iron at discharged Esophageal ulcer and erosive gastritis, on protonix bid, GI consult will consider outpt colonoscopy given severity of iron deficiency, and the possibility of needed anticoagulation if eventual hip replacement Severe arthritis, control pain with alternative agents Total Time Spent: Greater than 30 minutes This includes examination of the patient, discharge planning, medication reconciliation, and communication with other providers. Discharge Instructions Please refer to the electronic Patient Visit Report (Discharge Instructions) for additional information.
== END 2017-08-09 13:15 | disposition home or self-care (01) | DRG 811 ==
LOC: C.EDB 10:06 → C.2E 12:30 → ENRESERV 12:38
PROVIDERS: ADMIT Internal Medicine; ATTEND Internal Medicine
PROC: 0DB68ZX Excision of Stomach, Via Natural or Artificial Opening Endoscopic, Diagnostic (ICD-10-PCS; principal; 2017-08-08 15:00)
DX: D62 Acute posthemorrhagic anemia (principal); K22.11 Ulcer of esophagus with bleeding; D50.9 Iron deficiency anemia, unspecified; K31.9 Disease of stomach and duodenum, unspecified; T39.315A Adverse effect of propionic acid derivatives, initial encounter; M16.11 Unilateral primary osteoarthritis, right hip; K21.9 Gastro-esophageal reflux disease without esophagitis; K44.9 Diaphragmatic hernia without obstruction or gangrene; Z79.899 Other long term (current) drug therapy; Z79.1 Long term (current) use of non-steroidal anti-inflammatories (NSAID); Z88.5 Allergy status to narcotic agent; Z80.3 Family history of malignant neoplasm of breast; Z82.49 Family history of ischemic heart disease and other diseases of the circulatory system